=== PATIENT | female | born 1935 | race Caucasian/White ===

== ENCOUNTER → 2016-12-01 | Outpatient (CLI) | payer MEDICARE, BC ==
[~2016-12-01] MED LIST: ACET-2321 PO; ASCO500T9 PO; ASPI325T PO; ATOR20TA PO; BISA10SU8 RECTALLY; CALC-191 PO; CARV3.12 PO; CRAN3875; DOCU-118 PO; FERR325T40 PO; FURO-153 PO; HYDR-4074 PO; LISI-625 PO; LOPE2TAB24; MAGN400O4 PO; MIRT15TA6 PO; MORP100S3 SL; POLY12PO2 PO; POTA20LI4 PO; PREN1TAB73 PO
--- NOTE | 2016-12-01 14:32 | DI ---
Indication: ITS.REASON: M25.552 PAIN IN L HIP; M25.532 PAIN IN L WRIST;S72.002 FX;M79.642 PROCEDURE: HAND LEFT 3 VIEW: Encounter: Initial Comparison: None Findings: There are extreme arthritic changes of osteoarthritis with some central erosions in regards to the interphalangeal joint of the thumb as well as the distal interphalangeal joint of the index finger. Marked hypertrophic changes and mild periarticular calcification with soft tissue swelling of the proximal interphalangeal joints. Extreme sclerosis, subcortical cyst formation, fragmentation, and joint space narrowing associated with the first carpometacarpal joint. Soft tissue swelling about the wrist could be reflective of synovitis mildly diminished bone density. Impression: 1. Severe osteoarthritis with a mild erosive component. 2. Negative for acute traumatic variation. .
--- NOTE | 2016-12-01 14:35 | DI ---
Indication: ITS.REASON: M25.552 PAIN IN L HIP; M25.532 PAIN IN L WRIST;S72.002 FX;M79.642 PROCEDURE: ANKLE LEFT 3 VIEW: Encounter: Subsequent Comparison: Three view left ankle, 09/08/2016, 09/06/2016 Findings: In the interim, the casting material has been removed from the foreleg and ankle and there is again noted a distal fibular shaft fracture with minimal apex lateral angulation and approximately 70% apposition with further significant healing. Medial malleolar fracture is seen and on the oblique view, there does not appear to be considerable endosteal callus formation. There are very severe intertarsal degenerative changes. The ankle mortise seems to be intact and congruent. Prominent plantar and posterior calcaneal spurs. Impression: 1. Relatively well apposed minimally angulated distal fibular diaphyseal fracture which has demonstrated healing. 2. The medial malleolar fracture does not appear to demonstrate significant endosteal or periosteal callus formation and the fracture plane is yet relatively well-defined, indicative of incomplete healing. .
--- NOTE | 2016-12-01 14:41 | DI ---
Indication: ITS.REASON: M25.552 PAIN IN L HIP; M25.532 PAIN IN L WRIST;S72.002 FX;M79.642 PROCEDURE: PELVIS W/2 VIEW LT HIP: Encounter: Initial Comparison: 10/27/2016, pelvis and left hip Findings: An AP view of the pelvis as well as an AP and frog-leg lateral views of left hip demonstrates that the left femoral hip replacement remains satisfactory. The bone-cement interface appears satisfactory and the morongo osseous structures appear satisfactory. Advanced degenerative changes of the right hip are noted and there are also degenerative changes of the sacroiliac joints and facets of the lumbosacral spine. Considerable stool within the rectal vault is incidentally noted. Impression: No change in the appearance the pelvis and left hip. .
== END ==
LOC: IMA 12:55
PROVIDERS: ATTEND Physician Assistant Surgical
DX: S82.52XA Displaced fracture of medial malleolus of left tibia, initial encounter for closed fracture (principal); S89.302A Unspecified physeal fracture of lower end of left fibula, initial encounter for closed fracture; M19.042 Primary osteoarthritis, left hand; M85.842 Other specified disorders of bone density and structure, left hand; M25.442 Effusion, left hand; M16.12 Unilateral primary osteoarthritis, left hip; Z96.642 Presence of left artificial hip joint; M47.897 Other spondylosis, lumbosacral region; W19.XXXA Unspecified fall, initial encounter; Y93.89 Activity, other specified; Y92.89 Other specified places as the place of occurrence of the external cause; Y99.8 Other external cause status